=== PATIENT | male | born 1990 | race Caucasian/White ===

== ENCOUNTER 2017-04-16 16:56 | Inpatient (IN) | payer OTHER ==
[2017-04-16 18:36] LABS: Hematocrit 46 % (42-52); Hemoglobin 15.1 g/dl (14.0-18.0); Mean Corpuscular HGB Conc 33 g/dl (31-36); Mean Corpuscular Hemoglobin 30 pg (27-31); Mean Corpuscular Volume 90 fL (80-94); Mean Platelet Volume 7 um3 (7.4-10.4); Red Blood Count 5.08 10^6/ul (4.0-5.4); Red Cell Distribution Width 14 % (10.5-15)
[2017-04-16 18:59] LABS: Urine Bacteria Absent (Absent); Urine Bilirubin Negative (Negative); Urine Glucose Negative (Negative); Urine Nitrite Negative (Negative)
[2017-04-16 19:01] LABS: ALT 44 U/L (7-52); AST 32 U/L (13-39); Albumin 4.8 g/dL (3.2-5.2); Alkaline Phosphatase 30 U/L (34-104); Anion Gap 7 mmol/L (2-11); Blood Urea Nitrogen 9 mg/dL (6-24); CO2 Carbon Dioxide 31 mmol/L (22-32); Calcium 9.1 mg/dL (8.6-10.3); Chloride 101 mmol/L (101-111); EGFR African American 103.6 (>60); EGFR Non-African American 80.5 (>60); Globulin 2.3 g/dL (2-4); Glucose 95 mg/dL (70-100); Potassium 3.6 mmol/L (3.5-5.0); Sodium 139 mmol/L (133-145); Total Protein 7.1 g/dL (6.4-8.9)
[2017-04-16 19:02] LABS: Benzodiazepine Urine Screen None Detected (None Detect)
[2017-04-16 19:42] LABS: Acetaminophen < 15 mcg/mL; Alcohol < 10 mg/dL (<10); Salicylate < 2.50 mg/dL (<30)
[2017-04-16 19:52] LABS: TSH (Thyroid Stimulating Horm) 0.72 mcIU/mL (0.34-5.60)
--- NOTE | 2017-04-16 20:51 | ED ---
Psychiatric Complaint - HPI Summary HPI Summary: Patient presents to ED with worsening feelings of depression, bipolar, anxiety and OCD. He was a former student and wants to "get himself straight" before trying to get a job, etc. He cannot tell me exactly when symptoms started or of any worsening stresses. Denies health problems. He notes to some pain in his left foot but states he has been walking frequently and has had a previous injury. Refuses medications. He is A and O X 3 and well appearing. - History Of Current Complaint Chief Complaint: EDMentalHealth Time Seen by Provider: 04/16/17 17:48 Hx Obtained From: Patient Onset/Duration: Gradual Onset Timing: Constant Severity Initially: Moderate Severity Currently: Moderate Character: Depressed, Anxious, Frustrated Aggravating Factor(s): Nothing Alleviating Factor(s): Nothing Associated Signs And Symptoms: Positive: Negative Related History: Positive For: Prior Psychiatric Issues - Risk Factor(s) Completed Suicide Risk Factors: Male, White English - Allergies/Home Medications Allergies/Adverse Reactions: Allergies Allergy/AdvReac Type Severity Reaction Status Date / Time No Known Allergies Allergy Verified 09/30/15 17:27 PMH/Surg Hx/FS Hx/Imm Hx Previously Healthy: Yes Endocrine/Hematology History: Denies: Hx Diabetes, Hx Thyroid Disease Cardiovascular History: Reports: Hx Hypertension - AT TIMES, NO MEDS Denies: Hx Pacemaker/ICD, Other Cardiovascular Problems/Disorders Respiratory History: Denies: Hx Asthma, Hx Chronic Obstructive Pulmonary Disease (COPD), Other Respiratory Problems/Disorders GI History: Denies: Hx Ulcer, Other GI Disorders Musculoskeletal History: Denies: Other Musculoskeletal History Sensory History: Reports: Hx Contacts or Glasses - CONTACTS AND GLASSES Denies: Hx Hearing Aid Opthamlomology History: Reports: Hx Contacts or Glasses - CONTACTS AND GLASSES Neurological History: Reports: Other Neuro Impairments/Disorders - ADD AND BIPOLAR Psychiatric History: Denies: Hx Eating Disorder, Hx Panic Disorder, Hx of Violent Episodes Against Others - Surgical History Surgery Procedure, Year, and Place: rt knee, acl repair 09/16/2012, [place], DEVIATED SEPTUM 06/2015 Hx Anesthesia Reactions: Yes - NAUSEA - Immunization History Hx Pertussis Vaccination: No Immunizations Up to Date: Unable to Obtain/Confirm Infectious Disease History: No Infectious Disease History: Denies: Hx Hepatitis, Hx Human Immunodeficiency Virus (HIV), Traveled Outside the US in Last 30 Days - Social History Occupation: Unemployed Lives: Alone Alcohol Use: Rare Alcohol Amount: 2 PER MONTH Hx Substance Use: No Substance Use Type: Reports: None Hx Tobacco Use: No Smoking Status (MU): Current Some Day Smoker Have You Smoked in the Last Year: No Review of Systems Constitutional: Negative Eyes: Negative ENT: Negative Respiratory: Negative Gastrointestinal: Negative Positive: no symptoms reported, see HPI Positive: Myalgia - left foot pain Skin: Negative Positive: Anxious, Depressed All Other Systems Reviewed And Are Negative: Yes Physical Exam Triage Information Reviewed: Yes Vital Signs On Initial Exam: Initial Vitals Temp Pulse Resp BP Pulse Ox 97.9 F 70 18 148/76 100 04/16/17 17:15 04/16/17 17:15 04/16/17 17:15 04/16/17 17:15 04/16/17 17:15 Vital Signs Reviewed: Yes Appearance: Positive: Well-Appearing, Well-Nourished Skin: Positive: Warm, Skin Color Reflects Adequate Perfusion Head/Face: Positive: Normal Head/Face Inspection Eyes: Positive: EOMI, ANTONI, Conjunctiva Clear Neck: Positive: Supple, No Lymphadenopathy Respiratory/Lung Sounds: Positive: Clear to Auscultation, Breath Sounds Present Cardiovascular: Positive: Normal, Pulses are Symmetrical in both Upper and Lower Extremities Musculoskeletal: Positive: Normal, Strength/ROM Intact Neurological: Positive: Alert, Oriented to Person Place, Time, Speech Normal Psychiatric: Positive: Affect/Mood Appropriate AVPU Assessment: Alert - Nani Coma Scale Coma Scale Total: 15 Diagnostics - Vital Signs Vital Signs Temp Pulse Resp BP Pulse Ox 04/16/17 20:01 98.8 F 69 16 143/82 99 04/16/17 17:47 97.9 F 70 18 148/76 100 04/16/17 17:15 97.9 F 70 18 148/76 100 - Laboratory Lab Results: Lab Results 04/16/17 04/16/17 04/16/17 Range/Units 18:26 18:26 18:26 WBC 7.0 (3.5-10.8) 10^3/ul RBC 5.08 (4.0-5.4) 10^6/ul Hgb 15.1 (14.0-18.0) g/dl Hct 46 (42-52) % MCV 90 (80-94) fL MCH 30 (27-31) pg MCHC 33 (31-36) g/dl RDW 14 (10.5-15) % Plt Count 364 (150-450) 10^3/ul MPV 7 L (7.4-10.4) um3 Neut % (Auto) 61.5 (38-83) % Lymph % (Auto) 28.7 (25-47) % Snyder % (Auto) 7.8 (1-9) % Eos % (Auto) 0.2 (0-6) % Baso % (Auto) 1.8 (0-2) % Absolute Neuts (auto) 4.3 (1.5-7.7) 10^3/ul Absolute Lymphs (auto) 2.0 (1.0-4.8) 10^3/ul Absolute Monos (auto) 0.5 (0-0.8) 10^3/ul Absolute Eos (auto) 0 (0-0.6) 10^3/ul Absolute Basos (auto) 0.1 (0-0.2) 10^3/ul Absolute Nucleated RBC 0.01 10^3/ul Nucleated RBC % 0.1 Sodium 139 (133-145) mmol/L Potassium 3.6 (3.5-5.0) mmol/L Chloride 101 (101-111) mmol/L Carbon Dioxide 31 (22-32) mmol/L Anion Gap 7 (2-11) mmol/L BUN 9 (6-24) mg/dL Creatinine 1.12 (0.67-1.17) mg/dL Est GFR ( Amer) 103.6 (>60) Est GFR (Non-Af Amer) 80.5 (>60) BUN/Creatinine Ratio 8.0 (8-20) Glucose 95 (70-100) mg/dL Calcium 9.1 (8.6-10.3) mg/dL Total Bilirubin 0.70 (0.2-1.0) mg/dL AST 32 (13-39) U/L ALT 44 (7-52) U/L Alkaline Phosphatase 30 L (34-104) U/L Total Protein 7.1 (6.4-8.9) g/dL Albumin 4.8 (3.2-5.2) g/dL Globulin 2.3 (2-4) g/dL Albumin/Globulin Ratio 2.1 (1-3) TSH 0.72 (0.34-5.60) mcIU/mL Urine Color Yellow Urine Appearance Clear Urine pH 6.0 (5-9) Ur Specific Goldonna 1.018 (1.010-1.030) Urine Protein Negative (Negative) Urine Ketones Negative (Negative) Urine Blood Negative (Negative) Urine Nitrate Negative (Negative) Urine Bilirubin Negative (Negative) Urine Urobilinogen Negative (Negative) Ur Leukocyte Esterase Trace H (Negative) Urine WBC (Auto) Trace(0-5/hpf) (Absent) Urine RBC (Auto) Absent (Absent) Urine Bacteria Absent (Absent) Urine Glucose Negative (Negative) Urine Ascorbic Acid * H (Negative) Salicylates < 2.50 (<30) mg/dL Urine Opiates Screen (None Detect) Acetaminophen < 15 mcg/mL Ur Barbiturates Screen (None Detect) Ur Phencyclidine Scrn (None Detect) Ur Amphetamines Screen (None Detect) U Benzodiazepines Scrn (None Detect) Urine Cocaine Screen (None Detect) U Cannabinoids Screen (None Detect) Serum Alcohol < 10 (<10) mg/dL 04/16/17 Range/Units 18:26 WBC (3.5-10.8) 10^3/ul RBC (4.0-5.4) 10^6/ul Hgb (14.0-18.0) g/dl Hct (42-52) % MCV (80-94) fL MCH (27-31) pg MCHC (31-36) g/dl RDW (10.5-15) % Plt Count (150-450) 10^3/ul MPV (7.4-10.4) um3 Neut % (Auto) (38-83) % Lymph % (Auto) (25-47) % Snyder % (Auto) (1-9) % Eos % (Auto) (0-6) % Baso % (Auto) (0-2) % Absolute Neuts (auto) (1.5-7.7) 10^3/ul Absolute Lymphs (auto) (1.0-4.8) 10^3/ul Absolute Monos (auto) (0-0.8) 10^3/ul Absolute Eos (auto) (0-0.6) 10^3/ul Absolute Basos (auto) (0-0.2) 10^3/ul Absolute Nucleated RBC 10^3/ul Nucleated RBC % Sodium (133-145) mmol/L Potassium (3.5-5.0) mmol/L Chloride (101-111) mmol/L Carbon Dioxide (22-32) mmol/L Anion Gap (2-11) mmol/L BUN (6-24) mg/dL Creatinine (0.67-1.17) mg/dL Est GFR ( Amer) (>60) Est GFR (Non-Af Amer) (>60) BUN/Creatinine Ratio (8-20) Glucose (70-100) mg/dL Calcium (8.6-10.3) mg/dL Total Bilirubin (0.2-1.0) mg/dL AST (13-39) U/L ALT (7-52) U/L Alkaline Phosphatase (34-104) U/L Total Protein (6.4-8.9) g/dL Albumin (3.2-5.2) g/dL Globulin (2-4) g/dL Albumin/Globulin Ratio (1-3) TSH (0.34-5.60) mcIU/mL Urine Color Urine Appearance Urine pH (5-9) Ur Specific Goldonna (1.010-1.030) Urine Protein (Negative) Urine Ketones (Negative) Urine Blood (Negative) Urine Nitrate (Negative) Urine Bilirubin (Negative) Urine Urobilinogen (Negative) Ur Leukocyte Esterase (Negative) Urine WBC (Auto) (Absent) Urine RBC (Auto) (Absent) Urine Bacteria (Absent) Urine Glucose (Negative) Urine Ascorbic Acid (Negative) Salicylates (<30) mg/dL Urine Opiates Screen None detected (None Detect) Acetaminophen mcg/mL Ur Barbiturates Screen None detected (None Detect) Ur Phencyclidine Scrn None detected (None Detect) Ur Amphetamines Screen Presumptive positive H (None Detect) U Benzodiazepines Scrn None detected (None Detect) Urine Cocaine Screen None detected (None Detect) U Cannabinoids Screen None detected (None Detect) Serum Alcohol (<10) mg/dL Result Diagrams: 04/16/17 18:26 04/16/17 18:26 Lab Statement: Any lab studies that have been ordered have been reviewed, and results considered in the medical decision making process. Course/Dx - Course Course Of Treatment: Patient presents with CC of bipolar, depression and OCD symptoms. Symptoms are unspecified and patient states he needs to "get himself straight.". Will clear for MHU. - Differential Dx/Clinical Impression Differential Diagnosis/HQI/PQRI: Positive: Acute Psychosis, Bipolar Disorder, Homicidal Ideation, Homicidal Gesture Provider Diagnosis: Depression Discharge - Discharge Plan Condition: Stable Disposition: OTHER Discharge Disposition Comment: Patient cleared for MHU
[2017-04-16] MEDS ORDERED: Acetaminophen TAB* 325 MG PO PRN (23:16)
[2017-04-16] MEDS ORDERED: Al Hydrox/Mg Hydrox/Simet LIQ* 30 ML UDC PO PRN (23:16)
[2017-04-17] MEDS: Vitamin THERAPEUTIC TAB PO SCH (09:26)
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
[2017-04-17] MEDS: hydrOXYzine HCL TAB* 50 MG PO PRN (19:38)
[2017-04-18] MEDS: Vitamin THERAPEUTIC TAB PO SCH (08:37)
--- NOTE | 2017-04-18 14:04 | PN ---
Subjective - Subjective Service Type: 61876 Hosp care 15 min low complexity Subjective: The patient has been staying in bed all day and has not participated in groups or socialized on the unit. He attributes this to his withdrawal from stimulants and, at one point, requests a trial of Vyvanse to help him "get up." He continues to request computer usage, stating "I want to get a resume together and get a job." He reports that he would like to get re-enrolled at [employer] in November of 2017. He denies SI and states the AH have stopped. Objective - Appearance Appearance: Well Developed/Nourished Dysmorphic Features: No Hygiene: Normal Grooming: Well Kept - Behavior Psychomotor Activities: Abnormal-Decreased Exhibits Abnormal Movement: No - Attitude and Relatedness Attitude and Relatedness: Withdrawn Eye Contact: Fair - Speech Quality: Unpressured Latencies: Normal Quantity: Terse - Mood Patient's Decription of Mood: "Okay" - Affect Observed Affect: Depressed Affect Consistent with: Dysphoria - Thought Process Patient's Thought Process: Coherent Thought Content: No Passive Wish, No Suicidal Planning, No Homicidal Ideation, No Paranoid Ideation - Sensorium Experiencing Hallucinations: No, Sensorium is Clear Type of Hallucinations: Visual: No, Auditory: No, Command: No - Level of Consciousness Level of Consciousness: Alert Orientation: Yes Intact, Yes Orientated to Time, Yes Orientated to Place, Yes Orientated to Person - Impulse Control Impulse Control: Tenuous - Insight and Judgement Insight and Judgement: Fair - Group Participation Particating in Group Activities: No - Medication Management Medication Management Adherence: No Assessment - Assessment Merits Inpatient Hospitalization: Consolidate Improvements, Pending Safe DC Plan Inpatient DSM-IV Dx: Unspecified Mood DO Clinical Impression: 26 y.o. 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 Plan - Plan Treatment Plan: Name: DOUG RUANO Birthdate: 1990 [id number] The patient seems depressed but it is uncertain whether the etiology is related to a primary affective disorder, such as bipolar, secondary to repeated head trauma, or caused by withdrawal from psychostimulants, which the patient admits to mis-utilizing in the past. We will start a trial of bupropion XL 150mg PO qam and re-evaluate in the AM. He is encouraged to participate more in groups. Computer access will be granted so he can reconnect with [employer] in an effort to resume his academic work there. SW is working on housing. The patient refuses consent to speak with his family. Continued Medication Management: Start Medication Medications: Current Medications Acetaminophen (Tylenol Tab*) 650 mg PO Q4H PRN PRN Reason: PAIN or TEMP > 101 F Al Hydrox/Mg Hydrox/Simethicone (Maalox Plus*) 30 ml PO Q4H PRN PRN Reason: INDIGESTION Last Admin: 04/17/17 19:39 Dose: 30 ml Bupropion HCl (Wellbutrin Xl *) 150 mg PO DAILY [facility] PRN Reason: Protocol Hydroxyzine HCl (Atarax Tab*) 50 mg PO Q6H PRN PRN Reason: AGITATION/ANXIETY/INSOMNIA Last Admin: 04/17/17 19:38 Dose: 50 mg Multivitamins (Theragran Tab*) 1 tab PO DAILY [facility] Last Admin: 04/18/17 08:37 Dose: 1 tab - Discharge Plan Discharge Plan: Inpatient Hospitalization
[2017-04-18] MEDS: hydrOXYzine HCL TAB* 50 MG PO PRN (16:08)
[2017-04-19 08:05] VITALS: BP 126/64
[2017-04-19] MEDS: Vitamin THERAPEUTIC TAB PO SCH (08:45)
[2017-04-19] MEDS ORDERED: BuPROPion XL* 150 MG TAB.XL PO SCH (09:00)
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
== END 2017-04-19 12:05 | DRG 753 ==
LOC: ED 16:56 → BSU 21:56
PROVIDERS: ADMIT Psychiatry & Neurology Psychiatry; ATTEND Psychiatry & Neurology Psychiatry
DX: F39 Unspecified mood [affective] disorder (principal); I10 Essential (primary) hypertension; F31.9 Bipolar disorder, unspecified; F06.30 Mood disorder due to known physiological condition, unspecified; F15.90 Other stimulant use, unspecified, uncomplicated; F90.9 Attention-deficit hyperactivity disorder, unspecified type; J34.2 Deviated nasal septum; Z72.89 Other problems related to lifestyle; Z87.820 Personal history of traumatic brain injury; Z87.891 Personal history of nicotine dependence
CPT/HCPCS: 36415; 80053; 80307; 80320; 80329; 81003; 81015; 84443; 85025; 87086; 99222; 99231; 99238; A9270-GY; G0480

== ENCOUNTER 2017-07-29 11:16 | Emergency (ER) | payer OTHER ==
[2017-07-29 11:22] VITALS: BP 124/71
--- NOTE | 2017-07-29 12:18 | UC ---
Respiratory Complaint HPI - HPI Summary HPI Summary: 26 y/o male presents to the urgent care c/o persistent productive cough, fever and sore throat for the past days. Pt states he has HX bronchitis and he usually is Rx Z-justine. Pt states he has been taking Delsym and Mucinex w/o any resolution of symptoms. Symptoms are also associated with MIRANDA, Mild SOB, and his cough is producing a green phlegm. Pt denies Chest pain, N/V/D. - History of Current Complaint Chief Complaint: UCRespiratory Stated Complaint: COUGH CONGESTION Time Seen by Provider: 07/29/17 12:04 Hx Obtained From: Patient Onset/Duration: Gradual Onset, Lasting Days - days Timing: Constant Severity Initially: Mild Severity Currently: Moderate Pain Intensity: 5 - sore throat Pain Scale Used: 0-10 Numeric Character: Cough: Productive - green sputum Aggravating Factors: Deep Breaths Alleviating Factors: Nothing Associated Signs And Symptoms: Positive: Dyspnea, Fever, URI, Nasal Congestion - Risk Factors Pulmonary Embolism Risk Factors: Negative Cardiac Risk Factors: Negative Pseudomonas Risk Factors: Negative Tuberculosis Risk Factors: Negative - Allergies/Home Medications Allergies/Adverse Reactions: Allergies Allergy/AdvReac Type Severity Reaction Status Date / Time No Known Allergies Allergy Verified 07/29/17 11:22 PMH/Surg Hx/FS Hx/Imm Hx Previously Healthy: Yes - Pt denies PMHX - Surgical History Surgical History: Yes Surgery Procedure, Year, and Place: rt knee, acl repair 09/16/2012, [place], DEVIATED SEPTUM 06/2015 - Family History Known Family History: Positive: None - Pt denies FMHX - Social History Occupation: Employed Full-time Lives: With Family Alcohol Use: Rare Alcohol Amount: 2 PER MONTH Substance Use Type: None Smoking Status (MU): Never Smoked Tobacco Type: Cigarettes Have You Smoked in the Last Year: No - Immunization History Most Recent Influenza Vaccination: unknown Most Recent Pneumonia Vaccination: unknown Review of Systems Constitutional: Fever Skin: Negative Eyes: Negative ENT: Sore Throat Respiratory: Shortness Of Breath, Cough - Productive w/ green sputum Cardiovascular: Negative Gastrointestinal: Negative Genitourinary: Negative Motor: Negative Neurovascular: Negative Musculoskeletal: Negative Neurological: Headache - mild Is Patient Immunocompromised?: No All Other Systems Reviewed And Are Negative: Yes Physical Exam Triage Information Reviewed: Yes Appearance: Well-Appearing, No Pain Distress, Well-Nourished Vital Signs: Initial Vital Signs Temp 97.9 F 07/29/17 11:18 Pulse 89 07/29/17 11:18 Resp 18 07/29/17 11:18 BP 124/71 07/29/17 11:18 Pulse Ox 100 07/29/17 11:18 Vital Signs Reviewed: Yes Eye Exam: Normal Eyes: Positive: Conjunctiva Clear - PERRLA, EOMI ENT: Positive: Normal ENT inspection, Hearing grossly normal, Pharyngeal erythema - no exudate, Nasal congestion, Tonsillar swelling. Negative: Tonsillar exudate Neck exam: Normal Neck: Positive: Supple, Nontender, No Lymphadenopathy Respiratory: Positive: Chest non-tender, Normal breath sounds, Rhonchi - mild superior left lungs with crackles Cardiovascular Exam: Normal Cardiovascular: Positive: RRR, No Murmur, Pulses Normal Abdominal Exam: Normal Abdomen Description: Positive: Nontender, No Organomegaly, Soft. Negative: CVA Tenderness (R), CVA Tenderness (L) Bowel Sounds: Positive: Present Musculoskeletal Exam: Normal Musculoskeletal: Positive: Strength Intact, ROM Intact, No Edema Neurological Exam: Normal Psychological Exam: Normal Skin Exam: Normal UC Diagnostic Evaluation - Laboratory O2 Sat by Pulse Oximetry: 100 Respiratory Course/Dx - Course Course Of Treatment: 26 y/o male presents to the urgent care c/o persistent productive cough, fever and sore throat for the past days. Pt states he has HX bronchitis and he usually is Rx Z-justine. Pt states he has been taking Delsym and Mucinex w/o any resolution of symptoms. Symptoms are also associated with MIRANDA, Mild SOB, and his cough is producing a green phlegm. Pt denies Chest pain, N/V/ D.Hx obtained. Rapid strep: negative. Dx Acute Bronchits> Pt Rx Zpak Po, Tessalon tabas PO al albuterol inahler to alleviate cough, advised to increae fluid intake and rest. Advised If not improvement of symptoms please return to the urgent care or f/u with your PCP for further management. Pt unedrsoot and agreed w/ D/C instructions. - Differential Dx/Diagnosis Differential Diagnosis/HQI/PQRI: Asthma, Bronchitis, Influenza, Laryngitis, Sinusitis Provider Diagnoses: 1- Acute Bronchitis Discharge - Discharge Plan Condition: Stable Disposition: HOME Prescriptions: Albuterol HFA INHALER* [Ventolin HFA Inhaler*] 1 - 2 puff INH Q4H PRN #1 mdi PRN Reason: Cough Azithromycin TAB* [Zithromax TAB (Z-JUSTINE) 250 mg #6 tabs] 2 tab PO .TODAY, THEN 1 DAILY #1 justine Benzonatate CAP* [Tessalon 100 MG CAP*] 100 mg PO TID #15 cap Ibuprofen TAB* [Motrin TAB* 800 MG] 800 mg PO Q6H #30 tab Patient Education Materials: Acute Bronchitis (ED) Forms: *Work Release Referrals: Tyler Sprague MD [Primary Care Provider] - If Needed Additional Instructions: 1- Please take full course of antibiotic to avoid resistance. 2-Take the Tessalon PO tabs to alleviate cough and increase fluid intake, rest and eat well 3-If not improvement of symptoms please return to the urgent care or f/u with your PCP for further management.
== END 2017-07-29 12:59 | disposition home or self-care (01) ==
LOC: UCEAST 11:16
DX: J20.9 Acute bronchitis, unspecified (principal)
CPT/HCPCS: 87651; 99212; G0463